=== PATIENT | female | born 1965 | race Caucasian/White ===

== ENCOUNTER 2020-05-20 03:03 | Outpatient (CLI) | payer OTHER, SELFPAY ==
[2020-05-20 09:10] LABS: Abs Immature Grans 0.01 k/cumm (0.0-0.09); Absolute Basophil Count 0.01 k/cumm (0.0-0.2); Absolute Eosinophil Count 0.07 k/cumm (0.0-0.7); Absolute Lymphocyte Count 1.36 k/cumm (1.2-3.4); Absolute Monocyte Count 0.27 k/cumm (0.11-0.7); Absolute Neutrophil Count 2.56 k/cumm (1.2-6.7); Basophils % 0.2; Eosinophils % 1.6; HCT 39.2 % (36.0-46.0); HGB 13.1 g/dL (12.0-15.5); Immature Grans % 0.2 %; Lymphocytes % 31.8; Mean Corp. HGB Concentration 33.4 g/dL (32.0-36.0); Mean Corpuscular Hemoglobin 28.4 pg (27.0-33.0); Mean Platelet Volume 9.5 fL (8.0-11.0); Monocytes % 6.3; Neutrophils % 59.9; Platelet Count 237 x1000/uL (130-400); RBC 4.61 m/cumm (4.00-5.20); RBC Distribution Width 13.1 % (11.7-14.6); White Blood Cell Count 4.28 k/cumm (4.4-10.8)
[2020-05-20 10:18] LABS: ALT 25 U/L (14-59); AST 13 U/L (15-37); Alkaline Phosphatase 71 U/L (46-116); Anion Gap 8.7 mmol/L (3-11); BUN 16 mg/dL (7-18); Bilirubin, Total 0.8 mg/dL (0.2-1.0); CO2 24.3 mmol/L (21.0-32.0); CREATININE 0.84 mg/dL (0.55-1.02); Calcium 9.1 mg/dL (8.5-10.1); Calculated LDL 148 mg/dL (<100); Chloride 103 mmol/L (98-107); Cholesterol 234 mg/dL (<200); Glucose 105 mg/dL (74-106); HDL Cholesterol 57 mg/dL (40-60); Potassium 4.1 mmol/L (3.5-5.1); Sodium 136 mmol/L (136-145); TSH (W/Ref FT4) 1.29 uIU/mL (0.36-3.74); Total Protein 7.1 g/dL (6.4-8.2); Triglyceride 145 mg/dL (<150)
== END 2020-05-20 03:23 ==
PROVIDERS: PCP Internal Medicine; Visit Provider Internal Medicine
DX: Z00.00 Encounter for general adult medical examination without abnormal findings (principal)
CPT/HCPCS: 36415; 80053; 80061; 84443; 85025

== ENCOUNTER 2021-07-25 02:06 | Outpatient (CLI) | payer OTHER, SELFPAY ==
[2021-07-25 09:50] LABS: Abs Immature Grans 0.02 10^3/uL (0.0-0.06); Absolute Basophil Count 0.03 10^3/uL (0.0-0.2); Absolute Eosinophil Count 0.07 10^3/uL (0.0-0.7); Absolute Lymphocyte Count 1.21 10^3/uL (1.2-3.4); Absolute Monocyte Count 0.34 10^3/uL (0.1-0.8); Absolute Neutrophil Count 2.93 10^3/uL (1.2-6.7); Basophils % 0.7; Eosinophils % 1.5; Immature Grans % 0.4; Lymphocytes % 26.3; MCH 28.3 pg (27.0-33.0); MCHC 32.5 % (32.0-36.0); MCV 87.1 fL (80-95); MPV 9.4 fL (8.0-11.0); Monocytes % 7.4; Neutrophils % 63.7; Nucleated RBC 0 %; Platelet Count 250 10^3/uL (130-400); RBC 4.59 10^6/uL (3.93-5.22); RDW 12.7 % (11.7-14.6); RDW-SD 40.3 fL
[2021-07-25 10:59] LABS: ALT 31 U/L (14-59); AST 13 U/L (15-37); Albumin 4.2 g/dL (3.4-5.0); Alkaline Phosphatase 76 U/L (46-116); Anion Gap 7.1 mmol/L (3-11); BUN 13 mg/dL (7-18); Bilirubin, Total 1.1 mg/dL (0.2-1.0); CO2 29.9 mmol/L (21.0-32.0); CREATININE 0.9 mg/dL (0.55-1.02); Calcium 9.2 mg/dL (8.5-10.1); Calculated LDL 168 mg/dL (<100); Chloride 104 mmol/L (98-107); Cholesterol 257 mg/dL (<200); Glucose 101 mg/dL (74-106); HDL Cholesterol 65 mg/dL (40-60); Sodium 141 mmol/L (136-145); TSH (W/Ref FT4) 0.94 uIU/mL (0.36-3.74); Total Protein 7.5 g/dL (6.4-8.2); Triglyceride 124 mg/dL (<150)
== END 2021-07-25 02:07 | disposition home or self-care (01) ==
LOC: LBO 02:07
PROVIDERS: PCP Internal Medicine; Visit Provider Internal Medicine
DX: Z00.00 Encounter for general adult medical examination without abnormal findings (principal)
CPT/HCPCS: 36415; 80053; 80061; 84443; 85025

== ENCOUNTER 2021-12-19 15:00 | Outpatient (REF) | payer OTHER, SELFPAY ==
[2021-12-19 10:20] LABS: Bilirubin Negative (Negative); Blood Small (Negative); Clarity Clear (Clear); Glucose Negative (Negative); Ketones Negative (Negative); Leukocyte Esterase Small (Negative); Nitrite Positive (Negative); Specific Gravity 1.015 (1.005-1.025); Urobilinogen 0.2 EU/dL (Up TO 0.2)
[2021-12-19 11:42] LABS: Bacteria Rare HPF (Negative); C & S Indicated? C&S Done As Ordered; Casts Negative LPF (Negative); Crystals Negative HPF (Negative); Epithelial Cells Few HPF (Negative); Mucus Negative (Negative); RBC 0-2 HPF (0-2)
== END 2021-12-19 15:01 | disposition home or self-care (01) ==
LOC: LBN 15:00
PROVIDERS: PCP Internal Medicine; Visit Provider Urology
DX: R30.0 Dysuria (principal)
CPT/HCPCS: 81003; 81015; 87086

== ENCOUNTER 2022-07-26 16:46 | Outpatient (REF) | payer OTHER, SELFPAY ==
[2022-07-26 16:40] LABS: BUN 19 mg/dL (7-18); CREATININE 0.9 mg/dL (0.55-1.02); Calcium 9.1 mg/dL (8.5-10.1); Calculated LDL 141 mg/dL (<100); Chloride 105 mmol/L (98-107); Cholesterol 238 mg/dL (<200); Estimated GFR 75.97 (mL/min/1.73m2); Glucose 102 mg/dL (74-106); HDL Cholesterol 71 mg/dL (40-60); Potassium 4.7 mmol/L (3.5-5.1); Sodium 140 mmol/L (136-145); Triglyceride 130 mg/dL (<150)
== END 2022-07-26 16:47 | disposition home or self-care (01) ==
LOC: NCHCN 16:46
PROVIDERS: PCP Internal Medicine; Visit Provider Nurse Practitioner Family
DX: Z00.00 Encounter for general adult medical examination without abnormal findings (principal)
CPT/HCPCS: 80048; 80061

== ENCOUNTER 2023-02-04 13:18 | Outpatient (CLI) | payer BC, SELFPAY ==
--- NOTE | 2023-02-04 12:15 | DI.RAD_ITS ---
Exam(s) XR LUMBAR SPINE COMPLETE EXAM: XR LUMBAR SPINE COMPLETE CLINICAL HISTORY: LOW BACK PAIN ACUTE, M54.59. TECHNIQUE: 2D digital imaging was performed. COMPARISON: No exams were available for comparison FINDINGS: Five views: No evidence of acute fracture, listhesis, or pars defects. No prominent disc space narrowing. Mild asymmetric narrowing of the left side of L2-3 disc space. No obvious facet arthropathy. Mild scolio sis convex right which may be positional or muscle spasm. SI joints unremarkable. IMPRESSION: Mild findings as described above. DATA REPOSITORY: RADIATION DOSE DELIVERED:
--- NOTE | 2023-02-04 12:18 | DI.RAD_ITS ---
Exam(s) XR SACRUM EXAM: XR SACRUM CLINICAL HISTORY: LOW BACK PAIN ACUTE, M54.59. TECHNIQUE: 2D digital imaging was performed. COMPARISON: No exams were available for comparison FINDINGS: Two views: No evidence of obvious sacral fracture nor osseous lesions sacrum and coccyx. No obvious coccyx fracture. Sacroiliac joints unremarkable. There is mild moderate disc space narrowing at L5- S1 level noted. Visualized L4-5 disc space exhibits normal height on the lateral view. There are meza rgical clips in both sides of the pelvis noted. IMPRESSION: No significant radiograph findings in the sacrum and coccyx. DATA REPOSITORY: RADIATION DOSE DELIVERED:
== END 2023-02-04 13:38 ==
PROVIDERS: PCP Internal Medicine; Visit Provider Nurse Practitioner Family
DX: M54.59 Other low back pain (principal); M51.37 Other intervertebral disc degeneration, lumbosacral region
CPT/HCPCS: 72110; 72220

== ENCOUNTER 2023-04-26 00:08 | Outpatient (CLI) | payer BC, SELFPAY ==
--- NOTE | 2023-04-26 14:26 | DI.DEXA_ITS ---
Exam(s) XR DEXA BONE DENSITY W/WO TERRI EXAM: XR DEXA BONE DENSITY W/WO TERRI CLINICAL HISTORY: SCREENING FOR OSTEOPOROSIS Z13.820 TECHNIQUE: COMPARISON: No exams were available for comparison FINDINGS: Lateral Spine Image: Unremarkable. No compression deformities identified. Left hip: Total T-Score: -1.2 Total Z-Score: -0.5 T- and Z-scores: Findings are consistent with osteopenia. Lumbar Spine: Total T-Score: -2.3 Total Z-Score: -1.2 T- and Z-scores: Findings are consistent with osteopenia. There is osteoporosis in the L4 vertebral body with a T-score of -2.9. IMPRESSION: Osteoporosis in the L4 vertebral body.
== END 2023-04-26 00:28 ==
LOC: DI 00:09
PROVIDERS: PCP Internal Medicine; Visit Provider Nurse Practitioner Family
DX: Z13.820 Encounter for screening for osteoporosis (principal); M81.8 Other osteoporosis without current pathological fracture
CPT/HCPCS: 77080

== ENCOUNTER 2023-10-17 10:34 | Outpatient (REF) | payer BC, SELFPAY ==
[2023-10-17 16:38] LABS: HGB 12.9 g/dL (11.2-15.7); MCH 28.3 pg (27.0-33.0); MCHC 33.1 % (32.0-36.0); MCV 86 fL (80-95); MPV 9.9 fL (8.0-11.0); Platelet Count 254 10^3/uL (130-400); RBC 4.56 10^6/uL (3.93-5.22); RDW 12.8 % (11.7-14.6); RDW-SD 39.9 fL; WBC 4.21 10^3/uL (4.4-10.8)
[2023-10-17 17:08] LABS: BUN 21 mg/dL (7-18); CREATININE 0.9 mg/dL (0.55-1.02); Calculated LDL 163 mg/dL (<100); Chloride 104 mmol/L (98-107); Cholesterol 253 mg/dL (<200); Estimated GFR 75.03 (mL/min/1.73m2); Glucose 108 mg/dL (74-106); HDL Cholesterol 65 mg/dL (40-60); Potassium 4.1 mmol/L (3.5-5.1); Sodium 139 mmol/L (136-145); Triglyceride 125 mg/dL (<150)
== END 2023-10-17 10:35 | disposition home or self-care (01) ==
LOC: NCHCN 10:34
PROVIDERS: PCP Nurse Practitioner Family; Visit Provider Nurse Practitioner Family
DX: Z00.00 Encounter for general adult medical examination without abnormal findings (principal); Z85.3 Personal history of malignant neoplasm of breast; Z13.220 Encounter for screening for lipoid disorders
CPT/HCPCS: 80048; 80061; 85027

== ENCOUNTER 2024-10-22 03:02 | Outpatient (CLI) | payer BC, SELFPAY ==
[2024-10-22 08:03] LABS: Hemoglobin A1C 5.7 % (<5.7)
[2024-10-22 08:35] LABS: Calculated LDL 164 mg/dL (<100); Cholesterol 258 mg/dL (<200); HDL Cholesterol 71 mg/dL (40-60); Triglyceride 117 mg/dL (<150)
== END 2024-10-22 03:03 | disposition home or self-care (01) ==
LOC: LBO 03:02
PROVIDERS: PCP Nurse Practitioner Family; Visit Provider Nurse Practitioner Family
DX: Z00.00 Encounter for general adult medical examination without abnormal findings (principal)
CPT/HCPCS: 36415; 80061; 83036

== ENCOUNTER 2024-10-27 09:58 | Outpatient (REF) | payer BC, SELFPAY ==
[2024-10-27 15:41] LABS: Bacteria Negative HPF (Negative); C & S Indicated? C&S Done As Ordered; Casts Negative LPF (Negative); Crystals Negative HPF (Negative); Epithelial Cells Rare HPF (Negative); Mucus Negative (Negative); WBC 0-2 HPF (0-5)
== END 2024-10-27 09:59 | disposition home or self-care (01) ==
LOC: LBN 09:58
PROVIDERS: PCP Nurse Practitioner Family; Visit Provider Nurse Practitioner Family
DX: R31.29 Other microscopic hematuria (principal); R35.0 Frequency of micturition; R82.998 Other abnormal findings in urine
CPT/HCPCS: 81015; 87086

== ENCOUNTER 2024-11-17 03:23 | Outpatient (CLI) | payer BC, SELFPAY ==
[2024-11-20 17:27] LABS: Apolipoprotein B, Serum 102 mg/dL (48-124); Beta VLDL Cholesterol Not Detected mg/dL (<15); Beta VLDL Triglycerides Not Detected mg/dL (<15); Cholesterol, Total, CDC 224 mg/dL; Chylomicron Cholesterol Not Detected; Chylomicron Triglycerides Not Detected; HDL Cholesterol, CDC 56 mg/dL (>=50); LDL Cholesterol 117 mg/dL; LDL Triglycerides 41 mg/dL (<=50); Lp(a) Cholesterol 20 mg/dL (<5); LpX Not detected; Triglycerides, CDC 176 mg/dL; VLDL Cholesterol 31 mg/dL (<30); VLDL Triglycerides 116 mg/dL (<120)
== END 2024-11-17 03:24 | disposition home or self-care (01) ==
LOC: LBO 03:23
PROVIDERS: PCP Nurse Practitioner Family; Referring Provider Nurse Practitioner Family; Visit Provider Nurse Practitioner Family
DX: E78.5 Hyperlipidemia, unspecified (principal)
CPT/HCPCS: 36415; 80061; 82172; 82664

== ENCOUNTER 2024-12-28 19:31 | Outpatient (REF) | payer BC, SELFPAY ==
[2024-12-28 18:45] LABS: Creatinine,24hr Ur 1.13 g/24hr (0.60-1.80); Creatinine,Urine 33.17 mg/dL; Total Volume 3450 ml
[2024-12-30 09:41] LABS: Calcium Urine 9.7 mg/dL (See Note); Calcium Urine 24 hr 335 mg/24hr (100-300); Timed Urine Volume 3450 mL
== END 2024-12-28 19:32 | disposition home or self-care (01) ==
LOC: LBN 19:31
PROVIDERS: PCP Nurse Practitioner Family; Visit Provider Internal Medicine Endocrinology, Diabetes & Metabolism
DX: M81.0 Age-related osteoporosis without current pathological fracture (principal); N95.1 Menopausal and female climacteric states; E78.00 Pure hypercholesterolemia, unspecified; R73.09 Other abnormal glucose
CPT/HCPCS: 81050; 82340; 82570

== ENCOUNTER 2025-05-27 01:23 | Outpatient (CLI) | payer SELFPAY ==
--- NOTE | 2025-05-27 | DI.DEXA_ITS ---
Exam(s) XR DEXA BONE DENSITY W/WO TERRI EXAM: XR DEXA BONE DENSITY W/WO TERRI CLINICAL HISTORY: OSTEOPOROSIS L4 M81.0 MENOPAUSAL SYMPTOMS N95.1 TECHNIQUE: [employer] C densitometer analysis of left hip, lumbar spine and left forearm. Lateral survey image of the thoracic and lumbar spine. COMPARISON: CR XR DEXA BONE DENSITY W/WO TERRI from 04/26/2023 FINDINGS: Lateral view of the thoracic and lumbar spine shows no evidence of compression fractures. Bone mineral density measurements of the lumbar spine correspond to a total T- score of -2.4, in the osteopenic range. This represents a 2.6 percent decrease from 2022. Bone mineral density measurements of the left hip correspond to a total T-score of -1.0. This represents a 3.1 percent decrease from 2022.. The femoral neck T-score is -1.3, in the osteopenic range.. Theleft forearm bone mineral density measurements correspond to a T-score of the distal 3rd of -1.6, in the osteopenic range. This is not significantly changed from 2022.. IMPRESSION: Osteopenia of the spine, hip and forearm.
== END 2025-05-27 01:43 ==
PROVIDERS: PCP Nurse Practitioner Family; Visit Provider Internal Medicine Endocrinology, Diabetes & Metabolism
DX: M81.0 Age-related osteoporosis without current pathological fracture (principal); N95.1 Menopausal and female climacteric states
CPT/HCPCS: 77080

== ENCOUNTER 2025-06-14 17:54 | Outpatient (REF) | payer BC, SELFPAY ==
[2025-06-14 13:42] LABS: Creatinine,Urine 43.41 mg/dL
[2025-06-14 13:43] LABS: Creatinine,24hr Ur 1.04 g/24hr (0.60-1.80); Total Volume 2400 ml
[2025-06-15 09:07] LABS: Calcium Urine 15.0 mg/dL (See Note); Timed Urine Volume 2400 mL
== END 2025-06-14 17:55 | disposition home or self-care (01) ==
LOC: LBN 17:54
PROVIDERS: PCP Nurse Practitioner Family; Visit Provider Internal Medicine Endocrinology, Diabetes & Metabolism
DX: M81.0 Age-related osteoporosis without current pathological fracture (principal)
CPT/HCPCS: 81050; 82340; 82570